=== PATIENT | female | born 1955 | race Caucasian/White ===

== ENCOUNTER → 2016-03-23 | Outpatient (CLI) | payer OTHER ==
[~2016-03-23] MED LIST: BAYE325T12 PO; LISI20TA PO; NAPR500T2 PO; PERCOCET PO; PRAV40TA2 PO; PREV30CA6 PO
--- NOTE | 2016-03-23 15:55 | REP ---
Clinical: Contusion. Technique: Neutral and frog lateral views of the right hip. Findings: Age-related degenerative changes are appreciated. No obvious acute fracture or dislocation. Surrounding soft tissues unremarkable. Impression: Moderate age-related degenerative changes. No acute fracture or dislocation. Signed by Mickey Jose MD 03/23/2016 03:47 P
== END ==
LOC: M WUC 15:25
PROVIDERS: ATTEND Physician Assistant
DX: S70.01XA Contusion of right hip, initial encounter (principal); X58.XXXA Exposure to other specified factors, initial encounter; Y92.89 Other specified places as the place of occurrence of the external cause; Y93.89 Activity, other specified; Y99.8 Other external cause status

== ENCOUNTER 2016-05-16 06:07 | Emergency (ER) | payer OTHER ==
[2016-05-16 07:11] LABS: BASO % 0.3 % (0.0-1.0); EOS # 0.6 K/mm3 (0.0-0.50); EOS % 6.7 % (0.0-3.0); LARGE UNSTAINED CELL # 0.2 K/mm3 (0.0-0.4); LARGE UNSTAINED CELL % 2.6 % (0.0-4.0); LYMPH # 1.9 K/mm3 (1.5-4.5); LYMPH % 22.9 % (24.0-44.0); MEAN CORPUSCULAR HEMOGLOBIN 30.2 pg (27.0-33.0); MEAN CORPUSCULAR VOLUME 91.3 fl (80.0-96.0); MONO # 0.6 K/mm3 (0.0-0.8); MONO % 6.8 % (0.0-5.0); NEUTROPHILS % 60.6 % (36.0-66.0); PLATELET COUNT, AUTOMATED 249 k/mm3 (150-450); RED CELL DISTRIBUTION WIDTH 12.3 % (11.5-14.5); WHITE BLOOD COUNT 8.3 K/mm3 (4.0-10.0)
[2016-05-16 07:31] LABS: INR 0.95
--- NOTE | 2016-05-16 07:33 | ECGEPIP ---
Stationary ECG Study [facility] - ED Test Date: 2016-05-16 Pat Name: TON VIZCAINO Department: Room: - Gender: F Card Folder: regino : 1955 Requested By: ROLDAN Weiss Order Number: [id number] Reading MD: Jim Lantigua Measurements Intervals [place] Rate: 85 P: 33 NE: 144 QRS: 9 QRSD: 102 T: 24 QT: 360 QTc: 428 Interpretive Statements SINUS RHYTHM POSSIBLE PRIOR INFERIOR INFARCT SIMILAR TO 01/05/13 Electronically Signed On 05-16-2016 7:33:12 EST by Jim Lantigua
[2016-05-16 07:34] LABS: ALBUMIN 3.4 GM/DL (3.2-5.2); ALBUMIN/GLOBULIN RATIO 1.06 (1.00-1.93); ALKALINE PHOSPHATASE 186 U/L (45-117); ALT/SGPT 39 U/L (12-78); ANION GAP 10 MEQ/L (8-16); AST/SGOT 27 U/L (15-37); BILIRUBIN,DIRECT < 0.1 MG/DL (0.0-0.2); BILIRUBIN,TOTAL 0.3 MG/DL (0.2-1.0); BLOOD UREA NITROGEN 23 MG/DL (7-18); CALCIUM LEVEL 8.9 MG/DL (8.8-10.2); CARBON DIOXIDE LEVEL 27 MEQ/L (21-32); CHLORIDE LEVEL 106 MEQ/L (98-107); CREATININE FOR GFR 0.87 MG/DL (0.55-1.02); GLOMERULAR FILTRATION RATE > 60.0 (>45); GLUCOSE, FASTING 111 MG/DL (80-110); POTASSIUM SERUM 4.1 MEQ/L (3.5-5.1); SODIUM LEVEL 143 MEQ/L (136-145); TOTAL PROTEIN 6.6 GM/DL (6.4-8.2)
[2016-05-16 07:46] LABS: ABG BASE EXCESS 1.4 (-2.0-2.0); ABG DEVICE NASAL CANN; ABG PARTIAL PRESSURE CO2 45.9 mmHg (35.0-45.0); ABG PARTIAL PRESSURE O2 105.3 mmHg (75.0-100.0); ABG STANDARD HCO3 25.8 MEQ/L (22.0-26.0); ABG TOTAL CO2 28.4 MEQ/L (23.0-31.0); ABG pH (ARTERIAL) 7.387 UNITS (7.350-7.450)
[2016-05-16] MEDS ORDERED: ADACEL/BOOSTRIX VACCINE (DIPHTH/PERTUSS/ACELL/TETANUS)0.5ML SYR (90715) As Ordered ONE (07:48)
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
== END 2016-05-16 08:32 | disposition short-term general hospital (02) ==
LOC: M ED 06:07
DX: T59.814A Toxic effect of smoke, undetermined, initial encounter (principal); X00.1XXA Exposure to smoke in uncontrolled fire in building or structure, initial encounter; Y92.019 Unspecified place in single-family (private) house as the place of occurrence of the external cause; Y93.89 Activity, other specified; Y99.9 Unspecified external cause status; I10 Essential (primary) hypertension; E78.00 Pure hypercholesterolemia, unspecified; Z87.891 Personal history of nicotine dependence; Z79.899 Other long term (current) drug therapy